=== PATIENT | female | born 1960 | race Caucasian/White ===

== ENCOUNTER → 2016-07-27 | Outpatient (CLI) | payer BC ==
--- NOTE | 2016-07-27 10:26 | RAD ---
Left wrist, 3 views, 07/27/2016: History: Fall, pain There is patchy bony demineralization. No fracture or dislocation is identified. There are mild scattered degenerative changes. IMPRESSION: 1. Demineralization. 2. No acute bony abnormality is detected.
--- NOTE | 2016-07-27 10:29 | RAD ---
Left elbow, 3 views, 07/27/2016: History: Wrist and elbow contusion after a fall No fracture or dislocation is identified. There is minimal spurring arising from the coronoid process of the proximal ulna. No joint effusion is evident. IMPRESSION: No acute bony abnormality is detected.
== END | disposition home or self-care (01) ==
LOC: DXRADRC 07:29
PROVIDERS: ATTEND Physician Assistant Medical
DX: S60.212A Contusion of left wrist, initial encounter (principal); S50.02XA Contusion of left elbow, initial encounter; W19.XXXA Unspecified fall, initial encounter; Y93.89 Activity, other specified; Y92.89 Other specified places as the place of occurrence of the external cause; Y99.8 Other external cause status
CPT/HCPCS: 73080; 73110